=== PATIENT | female | born 1940 | race Caucasian/White ===

== ENCOUNTER 2022-03-10 09:42 | Outpatient (CLI) | payer BC, MEDICARE ==
[2022-03-10 11:16] LABS: Hemoglobin 12.2 g/dL (12.0-15.5)
[2022-03-10 11:45] LABS: Anion Gap 17 mmol/L (10-20); BUN (Urea Nitrogen) 10 mg/dL (9.8-20.1); Calc. Creatinine Clearance 0 mL/min (70-130); Carbon Dioxide 21 mmol/L (23-31); Chloride 104 mmol/L (98-107); Estimated GFR 85; Glucose 78 mg/dL (83-110); Potassium 4.9 mmol/L (3.5-5.1); Sodium 137 mmol/L (136-145)
== END 2022-03-10 09:43 | disposition home or self-care (01) ==
LOC: CSHLAB 09:42
PROVIDERS: ATTEND Otolaryngology Plastic Surgery within the Head & Neck
DX: Z01.818 Encounter for other preprocedural examination (principal); Z20.822 Contact with and (suspected) exposure to COVID-19
CPT/HCPCS: 80048; 85014; 85018; 87811; 93005; 93010

== ENCOUNTER 2022-03-13 05:36 | Day surgery (SDC) | payer BC, MEDICARE ==
[2022-03-13] MEDS ORDERED: Ondansetron PF 4 MG/2 ML Vial ONE (06:44)
[2022-03-13] MEDS ORDERED: Lidocaine 1% PF 5 ML VIAL ONE (06:44)
[2022-03-13] MEDS ORDERED: Lidocaine 1% MPF 2 ML VIAL ONE (06:44)
[2022-03-13] MEDS ORDERED: PROPOFOL 20 ML ONE (06:44)
[2022-03-13] MEDS ORDERED: Fentanyl 250 MCG/5 ML VIAL ONE (06:44)
[2022-03-13] MEDS ORDERED: Rocuronium Bromide 10 MG/ML (10ML VIAL) ONE (06:44)
[2022-03-13] MEDS ORDERED: Midazolam HCl 2 mg/2 ml Vial ONE (06:44)
[2022-03-13] MEDS ORDERED: Lidocaine 4% PF 5 ML AMP ONE (06:45)
[2022-03-13] MEDS ORDERED: Dexamethasone 20 MG/5 ML VIAL ONE (06:45)
[2022-03-13] MEDS ORDERED: ePHEDrine Sulfate 50 MG/10 ML VIAL ONE (06:45)
[2022-03-13] MEDS ORDERED: PHENYLEPHRINE-NS 100 MCG/ML 10 ML SYRINGE ONE (06:45)
[2022-03-13] MEDS ORDERED: EPINEPHrine 1 MG/ML AMP ONE ×2 (06:56→07:05)
[2022-03-13] MEDS ORDERED: Mupirocin 2% Ointment 22 GM Tube ONE (06:56)
[2022-03-13] MEDS ORDERED: Methylene Blue 50 MG/10 ML AMPUL ONE (06:57)
[2022-03-13] MEDS ORDERED: Lidocaine 1% w/Epinephrine 1:100K 20 ML VIAL ONE (06:57)
[2022-03-13] MEDS ORDERED: Famotidine/PF 20 mg/2ml Vial ONE (07:18)
[2022-03-13] MEDS ORDERED: CEFAZOLIN 1 GM VIAL ONE (07:31)
== END 2022-03-13 11:35 | disposition home or self-care (01) ==
LOC: CSHSDC 05:36
PROVIDERS: ATTEND Otolaryngology Plastic Surgery within the Head & Neck
PROC: 09HD05Z Insertion of Single Channel Cochlear Prosthesis into Right Inner Ear, Open Approach (ICD-10-PCS; principal; 2022-03-13)
DX: H90.41 Sensorineural hearing loss, unilateral, right ear, with unrestricted hearing on the contralateral side (principal); H90.3 Sensorineural hearing loss, bilateral
CPT/HCPCS: 70250; J0171; J0690; J1100; J2250; J2405; J2704; J3010; L8614; Q9968; S0028